=== PATIENT | male | born 1985 | race Caucasian/White ===

== ENCOUNTER 2019-03-13 20:21 | Emergency (ER) | payer OTHER ==
[~2019-03-13] VITALS: Ht 172.7 cm; Wt 81.6 kg
[2019-03-13] MEDS ORDERED: NEOMY/BACITR/POLYMYXIN OINT PACKET. TP ONE (20:45)
[2019-03-13 20:49] LABS: BILIRUBIN,URINE NEGATIVE (NEG); COLOR,URINE YELLOW; NITRITE,URINE NEGATIVE (NEG); PROTEIN,URINE NEGATIVE (NEG-TRACE); UROBILINOGEN,URINE 0.2 mg/dL (0.2 mg/dL)
[2019-03-13 20:56] LABS: AMPHETAMINE/METHAMPHETAMINE NEG (NEG); BARBITURATES NEG (NEG); BENZODIAZEPINES NEG (NEG); CANNABINOIDS NEG (NEG); CLARITY,URINE CLEAR; COCAINE NEG (NEG); METHADONE NEG (NEG); OPIATES NEG (NEG); PHENCYCLIDINE NEG (NEG)
[2019-03-13 20:57] LABS: BACTERIA,URINE 0 /HPF (0-FEW); RBC,URINE 0 /HPF (0-2); WBC,URINE 0 /HPF (0-4)
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
[2019-03-13 21:44] LABS: BASO % 1 % (0-3); EOS % 1 % (0-3); LYMPH # 1.8 x10^3/uL (1.0-4.8); LYMPH % 21 % (24-48); MEAN CORPUSCULAR HEMOGLOBIN 30 pg (25-35); MEAN CORPUSCULAR HGB CONC 35 g/dL (31-37); MEAN CORPUSCULAR VOLUME 85 fL (79-100); MONO # 0.4 x10^3/uL (0.0-1.1); MONO % 5 % (0-9); NEUT # 6.3 x10^3/uL (1.8-7.7); NEUT % 74 % (31-73); PLATELET COUNT 216 x10^3/uL (140-400); RED BLOOD COUNT 4.69 x10^6/uL (4.30-5.70); RED CELL DISTRIBUTION WIDTH 12.7 % (11.5-14.5); WHITE BLOOD COUNT 8.6 x10^3/uL (4.0-11.0)
[2019-03-13 21:57] LABS: CALCIUM 8.9 mg/dL (8.5-10.1); GFR 86.6; POTASSIUM 3.8 mmol/L (3.5-5.1)
[2019-03-13 21:59] LABS: ACETAMIN < 2 mcg/ml (10-30); ETHANOL < 10 mg/dL (0-10); SALIC < 2.8 mg/dL (2.8-20.0)
[2019-03-13 22:03] LABS: ALBUMIN 3.7 g/dL (3.4-5.0); ALBUMIN/GLOBULIN RATIO 1.1 (1.0-1.7); TOTAL BILIRUBIN 0.3 mg/dL (0.2-1.0)
[2019-03-13] MEDS ORDERED: KETOROLAC 15 MG/ML VIAL. IV ONE (23:00)
[2019-03-13] MEDS ORDERED: LIDOCAINE 2%/EPI 1:100,000 20 ML VIAL. IJ ONE (23:00)
[2019-03-13] MEDS ORDERED: ONDANSETRON PF 4 MG/2 ML VIAL. ONE (23:26)
[2019-03-13] MEDS ORDERED: ONDANSETRON PF 4 MG/2 ML VIAL. IV ONE (23:45)
[2019-03-14 00:10] VITALS: BP 112/52
== END 2019-03-14 00:12 | disposition home or self-care (01) ==
LOC: EEVIPCON 20:21 → ER 20:21
DX: S51.812A Laceration without foreign body of left forearm, initial encounter (principal); R45.851 Suicidal ideations; X78.8XXA Intentional self-harm by other sharp object, initial encounter; Y93.89 Activity, other specified; Y92.89 Other specified places as the place of occurrence of the external cause; Y99.8 Other external cause status
CPT/HCPCS: 12002; 36415; 80053; 80307; 80329; 81001; 83735; 85025; 96374; 96375; 99284; G0480; J1885; J2405; J3490

== ENCOUNTER 2019-06-23 13:17 | Emergency (ER) | payer OTHER ==
[~2019-06-23] VITALS: Ht 172.7 cm; Wt 81.6 kg
[2019-06-23] MEDS ORDERED: LIDOCAINE 1% Multi-Dose 20 ML VIAL. INJ ONE (13:45)
[2019-06-23] MEDS ORDERED: IV NORMAL SALINE 1000ML BAG 1,000 ML IV SCH (13:49)
[2019-06-23 14:06] LABS: BASO # 0.1 x10^3/uL (0.0-0.2); BASO % 1 % (0-3); EOS # 0.1 x10^3/uL (0.0-0.7); EOS % 1 % (0-3); HEMOGLOBIN 15.3 g/dL (13.0-17.5); LYMPH # 1.2 x10^3/uL (1.0-4.8); LYMPH % 10 % (24-48); MEAN CORPUSCULAR HEMOGLOBIN 30 pg (25-35); MEAN CORPUSCULAR HGB CONC 35 g/dL (31-37); MEAN CORPUSCULAR VOLUME 86 fL (79-100); MONO # 0.6 x10^3/uL (0.0-1.1); MONO % 5 % (0-9); NEUT # 9.6 x10^3/uL (1.8-7.7); NEUT % 84 % (31-73); PLATELET COUNT 272 x10^3/uL (140-400); RED BLOOD COUNT 5.14 x10^6/uL (4.30-5.70); RED CELL DISTRIBUTION WIDTH 12.6 % (11.5-14.5); WHITE BLOOD COUNT 11.5 x10^3/uL (4.0-11.0)
[2019-06-23 14:16] LABS: CREATININE 1.3 mg/dL (0.7-1.3); POTASSIUM 3.7 mmol/L (3.5-5.1)
--- NOTE | 2019-06-23 15:34 | PHYS DOC ---
Past Medical History Past Medical History: Depression, GERD, Schizophrenia, Other Additional Past Medical Histor: SUICIDE ATTEMPTS,CHRONIC BACK PAIN,ADJUSTMENT DISORDER Past Surgical History: No Surgical History Alcohol Use: Heavy Social History Narrative: UNKNOWN DRUG USE Adult General Chief Complaint Chief Complaint: LACERATION/AVULSION HPI HPI Patient is a 33 year old incarcerated male who presents EMS because of laceration of left arm. Patient cut his left arm with suicidal attempt with s evere bleeding with 0.5-1 L of normal loss and fire official applied rubber tourniquet to stop the bleeding. Patient was very agitated and EMS gave him 260 mg of ketamine IM. Patient is not able to give history. Review of Systems Review of Systems Unable to obtain Current Medications Current Medications Current Medications Medications (Trade) Dose Ordered Sig/Nina Start Time Stop Time Status Last Admin Dose Admin Lidocaine HCl (Lidocaine 1% 20ml Vial) 20 ml 1X ONCE 06/23/19 13:45 06/23/19 13:46 DC 06/23/19 13:42 20 ML Lorazepam (Ativan Inj) 2 mg 1X ONCE 06/23/19 14:30 06/23/19 14:31 DC 06/23/19 14:24 2 MG Sodium Chloride 1,000 ml @ 1,000 mls/hr Q1H 06/23/19 13:49 06/23/19 14:48 DC 06/23/19 13:45 1,000 MLS/HR Allergies Allergies Allergies Coded Allergies Type Severity Reaction Last Updated Verified No Known Drug Allergies 03/13/19 No Physical Exam Physical Exam Constitutional: Well nourished, no distress, non-toxic appearance. [] HENT: Normocephalic, atraumatic. Eyes: PERRLA, EOMI, conjunctiva normal, no discharge. [] Neck: Normal range of motion, no tenderness, supple, no stridor. [] Cardiovascular:Heart rate regular rhythm, no murmur [] Lungs & Thorax: Bilateral breath sounds clear to auscultation [] Extremities: 2 cm transverse laceration of left cubital area with small bleeding after removing tourniquet applied by operator vacuum, no tenderness, no cyanosis, no clubbing, ROM intact, no edema. [] Neurologic: Patient sedated on ketamine Psychologic: Unable to evaluate Current Patient Data Vital Signs Vital Signs Date Time Temp Pulse Resp B/P (MAP) Pulse Ox O2 Delivery O2 Flow Rate FiO2 06/23/19 14:26 100 152/90 (110) 94 Nasal Cannula 2.0 06/23/19 13:17 98.7 24 98.7 Lab Values Laboratory Tests Test 06/23/19 13:55 White Blood Count 11.5 x10^3/uL (4.0-11.0) H Red Blood Count 5.14 x10^6/uL (4.30-5.70) Hemoglobin 15.3 g/dL (13.0-17.5) Hematocrit 44.0 % (39.0-53.0) Mean Corpuscular Volume 86 fL (79-100) Mean Corpuscular Hemoglobin 30 pg (25-35) Mean Corpuscular Hemoglobin Concent 35 g/dL (31-37) Red Cell Distribution Width 12.6 % (11.5-14.5) Platelet Count 272 x10^3/uL (140-400) Neutrophils (%) (Auto) 84 % (31-73) H Lymphocytes (%) (Auto) 10 % (24-48) L Monocytes (%) (Auto) 5 % (0-9) Eosinophils (%) (Auto) 1 % (0-3) Basophils (%) (Auto) 1 % (0-3) Neutrophils # (Auto) 9.6 x10^3/uL (1.8-7.7) H Lymphocytes # (Auto) 1.2 x10^3/uL (1.0-4.8) Monocytes # (Auto) 0.6 x10^3/uL (0.0-1.1) Eosinophils # (Auto) 0.1 x10^3/uL (0.0-0.7) Basophils # (Auto) 0.1 x10^3/uL (0.0-0.2) Sodium Level 141 mmol/L (136-145) Potassium Level 3.7 mmol/L (3.5-5.1) Chloride Level 102 mmol/L (98-107) Carbon Dioxide Level 21 mmol/L (21-32) Anion Gap 18 (6-14) H Blood Urea Nitrogen 16 mg/dL (8-26) Creatinine 1.3 mg/dL (0.7-1.3) Estimated GFR (Cockcroft-Gault) 64.0 Glucose Level 161 mg/dL (70-99) H Calcium Level 9.0 mg/dL (8.5-10.1) Ethyl Alcohol Level < 10 mg/dL (0-10) Laboratory Tests 06/23/19 13:55 Laboratory Tests 06/23/19 13:55 EKG EKG [] Radiology/Procedures Radiology/Procedures [][facility] [address] [place] [address] IMAGING REPORT Signed PATIENT: EARL ARMSTRONG ACCOUNT: [id number] : 1985 LOCATION: ER AGE: 33 SEX: M EXAM STATUS: REG ER ORD. PHYSICIAN: KEITH HENDRIX MD REASON: injury PROCEDURE: NASAL BONES 3+V EXAM: NASAL BONES 3+V. HISTORY: Nasal trauma. COMPARISON: None. FINDINGS: A mildly depressed fracture is suspected along the left nasal bone. There is no significant displacement. The nasal septum appears midline. The paranasal sinuses appear normally aerated. IMPRESSION: 1. Suspect a mildly depressed fracture of the left nasal bone. Electronically signed by: David Cisneros MD (06/23/2019 4:47 PM) [facility] DICTATED and SIGNED BY: TAVON CISNEROS MD DATE: 06/23/191646 Course & Med Decision Making Course & Med Decision Making Pertinent Labs and Imaging studies reviewed. (See chart for details) Evaluation of patient in ER showed 33-year-old incarcerated male patient brought in because of suicidal attempt and left forearm laceration. Patient was agitated and had ketamine prior to arrival to ER. Patient gradually started to waking up and eating and screaming and 2 mg of Ativan was given with improvement of his condition. Patient became alert and oriented and stated he had suicidal ideation. Patient was evaluated by PAT team staff and did not have criteria for hospitalization and plan to discharge to police custody with suicidal watch. She'll complaining of pain and injury to his nose that happened 4 days ago. Patient had mild tenderness of nasal bone without deformity. X-ray showed questionable fracture of nasal bone without displacement. Patient was advised to follow-up with ENT on-call. Patient was discharged to police custody. Dragon Disclaimer Dragon Disclaimer This electronic medical record was generated, in whole or in part, using a voice recognition dictation system. Departure Departure Impression: Primary Impression: Laceration of left upper extremity Additional Impressions: Self-mutilation Suicide gesture Nasal bone fracture Disposition: 01 HOME, SELF-CARE (police custody) Condition: IMPROVED Referrals: UNKNOWN PCP NAME (PCP) LEI TORRE MD Patient Instructions: Nasal Fracture, Suicidal Feelings, How to Help Yourself, Sutured Wound Care Additional Instructions: Suture removal in 10 days Follow-up with your psychiatric or primary care physician in 1-2 days Return to ER if not getting better Follow up with ENT specialist regarding nondisplaced nasal bone fracture Laceration Repair Lac Repair Indication: Left cubital Procedure: The patient was placed in the appropriate position and anesthesia around the left arm laceration with 3 mL of 1% lidocaine without epinephrine was given. The area was then irrigated with normal saline. The laceration was repaired in one area with 4 stitches of 3-0 Nylon. Dressing with Nonadhesive Gauze and Coban Was Applied.. Total repaired wound length: 2 cm Other Items: [OTHER ITEMS] The patient tolerated the procedure well. Complication: None Problem Qualifiers Primary Impression: Laceration of left upper extremity Encounter type: initial encounter Qualified Codes: S41.112A - Laceration without foreign body of left upper arm, initial encounter Additional Impressions: Suicide gesture Encounter type: subsequent encounter Qualified Codes: X83.8XXD - Intentional self-harm by other specified means, subsequent encounter Nasal bone fracture Encounter type: subsequent encounter Fracture type: closed Fracture healing: with routine healing Qualified Codes: S02.2XXD - Fracture of nasal bones, subsequent encounter for fracture with routine healing KEITH HENDRIX MD Jun 23, 2019 15:33
--- NOTE | 2019-06-23 16:50 | RAD ---
EXAM: NASAL BONES 3+V. HISTORY: Nasal trauma. COMPARISON: None. FINDINGS: A mildly depressed fracture is suspected along the left nasal bone. There is no significant displacement. The nasal septum appears midline. The paranasal sinuses appear normally aerated. IMPRESSION: 1. Suspect a mildly depressed fracture of the left nasal bone. Electronically signed by: David Cisneros MD (06/23/2019 4:47 PM) [facility]
[2019-06-23 16:53] VITALS: BP 138/80
== END 2019-06-23 17:21 | disposition home or self-care (01) ==
LOC: ER 13:17 → EEVIPCON 13:17 → ER 15:45
DX: S02.2XXA Fracture of nasal bones, initial encounter for closed fracture (principal); S41.112A Laceration without foreign body of left upper arm, initial encounter; K21.9 Gastro-esophageal reflux disease without esophagitis; F20.9 Schizophrenia, unspecified; G89.29 Other chronic pain; F10.20 Alcohol dependence, uncomplicated; Y90.9 Presence of alcohol in blood, level not specified; X78.8XXA Intentional self-harm by other sharp object, initial encounter; Y93.89 Activity, other specified; Y92.89 Other specified places as the place of occurrence of the external cause; Y99.8 Other external cause status
CPT/HCPCS: 12001; 36415; 70160; 80048; 85025; 96374; 99285; G0480; J2060; J7030